=== PATIENT | female | born 1970 | race Caucasian/White ===

== ENCOUNTER → 2016-05-20 | Outpatient (CLI) | payer BC | LOC: M PAIN 11:20 | PROVIDERS: ATTEND Anesthesiology | DX: G89.29 Other chronic pain (principal); M54.12 Radiculopathy, cervical region; M25.512 Pain in left shoulder; E03.9 Hypothyroidism, unspecified; D64.9 Anemia, unspecified; G43.909 Migraine, unspecified, not intractable, without status migrainosus; M32.9 Systemic lupus erythematosus, unspecified; Z79.890 Hormone replacement therapy ==

== ENCOUNTER → 2016-05-20 | Outpatient (CLI) | payer BC ==
--- NOTE | 2016-06-02 00:01 | ECWPNPC ---
PATIENT NAME: SEGUNDO POWER : 1970 GENDER: FEMALE VISIT DATE: 05/20/2016 DISCHARGE DATE: 05/20/16 0746 VISIT LOCKED DATE TIME: PHYSICIAN: WILBUR WITT RESOURCE: WILBUR WITT REASON FOR APPOINTMENT 1. NEW PATIENT CONSULT - LEFT SHOULDER PAIN HISTORY OF PRESENT ILLNESS TODAY'S VISIT: NOTES: STATES HAS BEEN DEALING WITH LEFT SHOULDER PAIN FOR A YEAR. PAIN STARTS AT BACK PF HEAD RADIATES TO SHOULDER AND DOWN LEFT ARM TO LEFT THUMB. STATES IT IS &QUOT;FINE&QUOT; ON AWAKENING, BUT INCREASES DAY PROGRESSES. SENSATION IS THROBBING, TENDER, NUMB, OCCASSIONALLY A BURNING SENSATION AND A PERSISTANT ACHE. HAS HAD PHYSICAL THERAPY FOR NECK (NO IMPROVEMENT), TRIGGER POINT INJECTION TO THE SCAPULA (NO IMPROVEMENT), ACCUPUNCTURE (NO IMPROVEMENT) A TENS UNIT WHICH CANBE HELPFUL AND A SHORT COURSE OF KELSIE WHICH WAS HELPFUL . WAS SEEN AT [facility] AND [facility]. HAS HAD MRI OF CERVICAL SPINE AND EMG/NCS DONE. NO NUMBNESS/TINGLING/WEAKNESS/PRICKLING ON RIGHT SHOULDER OR ARM, OR IN BACK OR LEGS.. CURRENT MEDICATIONS TAKING SYNTHROID 100 MCG TABLET 1 TABLET EVERY MORNING ON AN EMPTY STOMACH ORALLY ONCE A DAY TAKING ZYRTEC D 12HR OTC TABLET 1 TAB(S) ORALLY PRN TAKING MULTI-VITAMIN/IRON 1 TABLET DIRECTED ORALLY DAILY TAKING PLAQUENIL 200 MG TABLET 1 TABLET WITH FOOD OR MILK ORALLY ONCE A DAY TAKING MAGNESIUM 500 MG TABLET 1 TABLET WITH A MEAL ORALLY ONCE A DAY TAKING PROGESTERONE 100 MG CAPSULE 1 CAPSULES AT BEDTIME ORALLY ONCE A DAY TAKING VITAMIN D (ERGOCALCIFEROL) 56194 UNIT CAPSULE 1 CAPSULE ORALLY ONCE A WEEK TAKING VITAMIN B12 3000 MCG/ML LIQUID LIQUID SUBLINGUAL ONCE A DAY PAST MEDICAL HISTORY HYPOTHYROIDISM ANEMIA MIGRAINE H/A LUPUS ALLERGIES N.K.D.A. SURGICAL HISTORY C SECTION X 2 COLONOSCOPY 2009 FAMILY HISTORY FATHER: ALIVE 66 YRS, CVA, DOING WELL MOTHER: ALIVE 64 YRS, OSTEOPOROSIS AT 40 Y.O., FX OF BACK. PATERNAL GRAND MOTHER: 63 YRS, COLON CANCER MATERNAL AUNT: 50'S YRS, BREAST CANCER 1 BROTHER(S) , 1 SISTER(S) - HEALTHY. 3DAUGHTER(S) - HEALTHY. NO FAMILY HX OF OVARIAN CANCER. REVIEW OF SYSTEMS FOLLOW-UP ROS: CARDIOLOGY: NEGATIVE FOR, CHEST PAIN, EDEMA, HEART MURMURS, PALPITATIONS . HEME/LYMPH TRANSFUSION AFTER . TAKES IRON AND B VITAMINS . INTEGUMENT NO UNUSUAL RASH OR CHANGING LESIONS . ENDOCRINOLOGY: THYROID UNDER CONTROL, DENIES DIABETES . GASTROENTEROLOGY: NO NAUSEA, VOMITING, DIARRHEA, CONSTIPATION, MELENA, HEMATOCHEZIA. DENIES LOSS OF BOWEL CONTROL . GI/ DENIES LOSS OF BLADDER CONTROL/DENIES HEMATURIA . NEUROLOGY: POSITIVE FOR MIGRAINE WITH MENSES. NO HX OF SEIZURES . PULMONOLOGY: NEGATIVE FOR, ASTHMA, BREATHING PROBLEMS, COUGH. NO HISTORY OF BRONCHITIS, PNEUMONIA . PSYCHOLOGY: PATIENT DENIES SUICIDAL OR HOMICIDAL IDEATION. BECKS DEPRESSION SELF INVENTORY= . VITAL SIGNS WT 130 LBS, HT 63 IN, BMI 23.03 INDEX, BP 115/67 MM HG, HR 83 /MIN, RR 16 /MIN, TEMP 98.7 F, OXYGEN SAT % 100%, NA INITIALS SC 13:02. EXAMINATION GENERAL EXAMINATION: GENERAL APPEARANCE:WELL DEVELOPED, THIN, WELL GROOMED. PSYCHALERT , ORIENTED X 3 , APPROPRIATE MOOD AND AFFECT , GOOD EYE CONTACT. HEENT:NORMOCEPHALIC, NO LYMPHADENOPATHY, NO THYROMEGLY. LUNGS:CLEAR TO AUSCULTATION BILATERALLY, NO WHEEZES, RALES OR RHONCHI. HEART:HEART RATE REGULAR, NORMAL S1S2, NO MURMURS, CLICK OR RUBS. MUSCULOSKELETAL:5-/5 LUE PROX/DIST. DECREASED MUSCLE MASS AT RIGHT BICEPS. POINT TENDERRNESS OVER LEFT GREATER THAN RIGHT CERVICAL PARASPINOUS MUSCLES. AUDIBLE CREPITUS NOTED WITH NECK ROTATION. CAN FLEX AND EXTEND NECK WITH SOME RESTRICTION. , TRIGGER POINTS:, ELICITED WITH PALPATION OVER CERVICAL SPINOUS PROCESSES AND ACROSS THE TRAPEZIUS MUSCLESLEFT SIDE ONLY. RESTRICTION OF ROM IS NOTED. . NEUROLOGIC EXAM:DTRS 1+ RUE. 3+ LUE DECREASED SENSATION LEFT LATERAL FOREARM AND THUMB. POSITIVE L'ERHMITTES SIGN WITH HEAD COMPRESSION.. ASSESSMENTS CERVICAL RADICULOPATHY AT C5 - M54.12 (PRIMARY) TREATMENT CERVICAL RADICULOPATHY AT C5 START GABAPENTIN CAPSULE, 100 MG, DIRECTED, ORALLY, THREE TIMES DAILY, 30 DAY(S), 90, REFILLS 1 CERVICAL EPIDURAL WILBUR RIVERA 05/20/2016 12:38:51 PM > LEFT C5-6 REGION NOTES: START GABAPENTIN 100 MG AT BEDTIME FOR 4 DAYS, THEN INCREASE TO TWICE A DAY, AND THEN AFTER 4 MORE DAYS, THEN THREE TIMES PER DAY. DO PHYSICAL THERAPY EXERCISES AFTER EPIDURAL INJECTION. ,CERVICAL EPIDURAL INJECTION MATERIAL WAS PRINTED,CERVICAL EPIDURAL INJECTION MATERIAL WAS PRINTED. CLINICAL NOTES: OPTION FOR EPIDURAL INJECTIONS WERE DISCUSSED WITH THE PATIENT. FDA CONCERNS AND WARNING WERE REVIEWED INCLUDING THE RISK OF BLEEDING, RISK OF INFECTION, RISK OF INCREASED PAIN OR NEURALGIA, AND RISK OF PARALYSIS. PATIENT'S QUESTIONS WERE ANSWERED AND HE/SHE WISHES TO MOVE FORWARD WITH EPIDURAL INJECTION. FOLLOW UP AFTER INJECTION (REASON: JOHNSON - NEED MRI OF C SPINE DONE AT [facility]) ELECTRONICALLY SIGNED BY CRISTINA SOL ON 06/01/2016 AT 02:02 PM EST DISCLAIMER : THIS IS A VISIT SUMMARY EXTRACTED FROM THE [employer] CHART. IT IS NOT A COPY OF THE [employer] PROGRESS NOTE. MARIA GUADALUPE
== END ==
LOC: M PAIN 11:20
PROVIDERS: ATTEND Nurse Practitioner Family
DX: G89.29 Other chronic pain (principal); M54.12 Radiculopathy, cervical region; M25.512 Pain in left shoulder; E03.9 Hypothyroidism, unspecified; D64.9 Anemia, unspecified; G43.909 Migraine, unspecified, not intractable, without status migrainosus; M32.9 Systemic lupus erythematosus, unspecified; Z79.899 Other long term (current) drug therapy

== ENCOUNTER → 2016-06-09 | Outpatient (CLI) | payer BC ==
[~2016-06-09] MED LIST: ISOVUE-M 300 61% 15ML VIAL (Q9967) As Ordered ONE; LIDOCAINE 1% SDV INJ 30 ML VIAL As Ordered ONE; diazePAM 5 MG TAB As Ordered ONE; methylPREDNISolone SUSP 40 MG/ML (DEPO-medrol) VIAL (J1030) As Ordered ONE
--- NOTE | 2016-06-09 18:24 | REP ---
Partial cervical spine series: Two views: History: Injection procedure for pain. 6 seconds of fluoroscopy time is reported. Findings: A sequence of two fluoroscopically obtained intraprocedural spot radiographs of the cervicothoracic junction document needle position and contrast injection associated with cervical epidural injection procedure. Signed by Bryson Vang MD 06/09/2016 06:42 P
--- NOTE | 2016-06-10 23:41 | ECWPNPC ---
PATIENT NAME: SEGUNDO POWER : 1970 GENDER: FEMALE VISIT DATE: 06/09/2016 DISCHARGE DATE: 06/09/16 1446 VISIT LOCKED DATE TIME: PHYSICIAN: AVIS OSMAN RESOURCE: AVIS OSMAN REASON FOR APPOINTMENT 1. CERVICAL EPIDURAL HISTORY OF PRESENT ILLNESS HISTORY OF PRESENT ILLNESS: PAIN THE PATIENT DESCRIBES THE PAIN... FALL RISK SCREENING: SCREENING :NO FALLS IN THE PAST YEAR CURRENT MEDICATIONS TAKING SYNTHROID 100 MCG TABLET 1 TABLET EVERY MORNING ON AN EMPTY STOMACH ORALLY ONCE A DAY, NOTES: 06/08/16@0700 TAKING ZYRTEC D 12HR OTC TABLET 1 TAB(S) ORALLY PRN, NOTES: 6 WEEKS TAKING MULTI-VITAMIN/IRON 1 TABLET DIRECTED ORALLY DAILY, NOTES: 2 WEEKS TAKING PLAQUENIL 200 MG TABLET 1 TABLET WITH FOOD OR MILK ORALLY ONCE A DAY, NOTES: 06/08/16@0900 TAKING MAGNESIUM 500 MG TABLET 1 TABLET WITH A MEAL ORALLY ONCE A DAY, NOTES: 06/07/16@2100 TAKING PROGESTERONE 100 MG CAPSULE 1 CAPSULES AT BEDTIME ORALLY ONCE A DAY, NOTES: 06/07/16@2100 TAKING VITAMIN D (ERGOCALCIFEROL) 02699 UNIT CAPSULE 1 CAPSULE ORALLY ONCE A WEEK, NOTES: @1200 TAKING VITAMIN B12 3000 MCG/ML LIQUID LIQUID SUBLINGUAL ONCE A DAY, NOTES: 06/05/16@1200 TAKING GABAPENTIN 100 MG CAPSULE DIRECTED ORALLY THREE TIMES DAILY, NOTES: 06/08/16@0900 MEDICATION LIST REVIEWED AND RECONCILED WITH THE PATIENT PAST MEDICAL HISTORY HYPOTHYROIDISM ANEMIA MIGRAINE H/A LUPUS ALLERGIES N.K.D.A. SOCIAL HISTORY GENERAL: TOBACCO USE ARE YOU A:NONSMOKER LEARNING BARRIERS / SPECIAL NEEDS ORIENTED TO PLAN OF CARE: PATIENT, PAIN MANAGEMENT PATIENT, ORIENTED TO PLAN OF CARE: PATIENT, PAIN MANAGEMENT PATIENT. NEW PATIENT PAIN DIARY TODAY'S VISITNOTES FROM 0-10, WHAT LEVEL IS YOUR PAIN TODAY?0 PAIN CLINIC PFS, CLERGY, PUBLIC HEALTH REFERRALS PFS REFERRAL NEEDED?NO CLERGY REFERRAL NEEDED?NO PUBLIC HEALTH REFERRAL NEEDED?NO WAS THE PROVIDER NOTIFIED OF ANY PERTINENT INFO?NO PFS REFERRAL NEEDED?NO CLERGY REFERRAL NEEDED?NO PUBLIC HEALTH REFERRAL NEEDED?NO WAS THE PROVIDER NOTIFIED OF ANY PERTINENT INFO?NO REVIEW OF SYSTEMS CONSTITUTIONAL: ANY CHANGE IN YOUR MEDICAL CONDITION? NO . CHILLS NO . FEVER NO . INFECTION: DO YOU HAVE NEW INFECTIONS? NO . DO YOU HAVE HISTORY OF MRSA? NO . MUSCULOSKELETAL: ANY NEW PATTERNS OF PAIN OR NUMBNESS? NO . GASTROENTEROLOGY: ANY NEW CHANGE IN BOWEL CONTROL? NO . GENITOURINARY: ANY NEW CHANGE IN BLADDER CONTROL? NO . IS THERE A CHANCE YOU COULD BE ? NO . HEMATOLOGY/LYMPH: DO YOU TAKE ANY BLOOD THINNERS? (FOR EXAMPLE- COUMADIN, PLAVIX, AGGRENOX, PLATEL, PRADAXA, OR XARELTO) NO . WHEN WAS YOUR LAST DOSE? DATE: TIME: . NEUROLOGY: HAVE YOU FALLEN IN THE PAST 6 MONTHS? NO . ANY NEW EXTREMITY NUMBNESS OR WEAKNESS? NO . CARDIOLOGY: DO YOU HAVE A PACEMAKER OR DEFIBRILLATOR? NO . RESPIRATORY: HAVE YOU BEEN SICK IN THE PAST WEEK? NO . FEVER NO . FLU LIKE SYMPTOMS? NO . COUGH NO . INTEGUMENTARY: DO YOU HAVE ANY RASHES OR OPEN SORES? NO . ALLERGIC/IMMUNO: ARE YOU ALLERGIC TO SHELLFISH OR IV DYE? NO . ANY NEW ALLERGIES? NO . PSYCHIATRIC: DO YOU HAVE THOUGHTS OF HURTING YOURSELF OR SOMEONE ELSE? NO . ARE YOU ABUSED, NEGLECTED, OR IN AN UNSAFE ENVIRONMENT? NO . ENDOCRINOLOGY: ARE YOU DIABETIC? NO . OTHER: DO YOU NEED ANY PRESCRIPTIONS? NO . IF YES, PLEASE LIST: ____ . ANY NEW PROBLEMS WITH YOUR MEDICATIONS? NO . WHEN DID YOU LAST EAT? ____06/08/16 . WHEN DID YOU LAST DRINK? ____06/09/16@0300 . WHAT DID YOU LAST DRINK? ____WATER . NAME OF PERSON DRIVING YOU HOME? ____KAREN POWER OR HE . DO YOU HAVE ANY OTHER QUESTIONS OR CONCERNS NO . REVIEWED BY: PROVIDER: . VITAL SIGNS WT 130 LBS, HT 63 IN, BMI 23.03 INDEX, BP 114/54 MM HG, HR 80 /MIN, RR 16 /MIN, TEMP 98.0 F, OXYGEN SAT % 99, NA INITIALS TL 1106, REVIEWED BY: VD. ASSESSMENTS CERVICAL DISC DISORDER AT C4-C5 LEVEL WITH RADICULOPATHY - M50.121 (PRIMARY) CERVICAL DISC DISORDER AT C5-C6 LEVEL WITH RADICULOPATHY - M50.122 CERVICAL DISC DISORDER AT C6-C7 LEVEL WITH RADICULOPATHY - M50.123 PROCEDURES PN CERVICAL EPIDURAL PRE PROCEDURE DIAGNOSIS CERVICAL RADICULOPATHY, CERVICAL DISC DISORDER WITH RADICULOPATHY POST PROCEDURE DIAGNOSIS CERVICAL RADICULOPATHY , CERVICAL DISC DISORDER WITH RADICULOPATHY PROCEDURE CERVICAL EPIDURAL STEROID INJECTION UNDER FLUOROSCOPIC GUIDANCE SURGEON DR. AVIS OSMAN DECK AND HULL ASSEMBLER NONE ANESTHESIA LOCAL PRE PROCEDURE NOTE THE PATIENT HAS A HISTORY OF CHRONIC CERVICAL PAIN. I EVALUATE THE PATIENT AND REVIEWED THE CHART. I WENT OVER THE RISKS, ALTERNATIVES, AND BENEFITS ASSOCIATED WITH THIS PROCEDURE. THE PATIENT WOULD LIKE TO PROCEED AND GIVE CONSENT TO PERFORMED THE PROCEDURE. THE PATIENT DENIES UNEXPLAINABLE WEIGHT LOSS, FEVER, CHILLS, OR NEW CHANGES IN URINARY OR BOWEL CONTROL DESCRIPTION OF PROCEDURE THE PATIENT WAS BROUGHT TO THE PROCEDURE ROOM AND PLACED IN THE PRONE POSITION. THE CERVICOTHORACIC AREA WAS CLEANED WITH BETADINE SOLUTION AND DRAPED ASEPTICALLY. THE PROCEDURE WAS DONE UNDER STERILE CONDITIONS. I CHECKED LATERALITY AND THE LEVEL WHERE THE PROCEDURE WAS GOING TO BE PERFORMED WITH THE PATIENT AND THE SUPPORTING STAFF AT THE MOMENT OF THE TIME OUT IN THE PROCEDURE ROOM. UNDER FLUOROSCOPIC GUIDANCE, THE TARGET WAS SELECTED AT THE INTERLAMINAR LEVEL OF C7-T1. LIDOCAINE WAS USED TO NUMB THE SKIN AND THE SUBCUTANEOUS TISSUE BELOW IT. EPIDURAL TUOHY NEEDLE 17-GAUGE WAS ADVANCED UNDER FLUOROSCOPIC GUIDANCE AND FOLLOWING PATIENT FEEDBACK UNTIL THE EPIDURAL SPACE WAS REACHED 6 CM DEEP INTO THE SKIN BY THE LOSS OF RESISTANCE TECHNIQUE. ISOVUE M DYE 30%, 0.25 ML, WAS INJECTED SHOWING ADEQUATE SPREAD OF THE DYE. THEN, A SOLUTION OF 3 ML OF NORMAL SALINE WITH DEPO-MEDROL 60 MG WAS INJECTED SLOWLY FOLLOWING PATIENT FEEDBACK. THERE WAS NO EVIDENCE OF BLOOD, PARESTHESIA OR CEREBROSPINAL FLUID DURING THE PROCEDURE. THE PATIENT WAS SENT TO THE RECOVERY ROOM. THE PATIENT WAS MOVING THE EXTREMITIES AND DOING WELL. THERE WAS NO COMPLICATION DURING THE PROCEDURE. FLUOROSCOPY TIME WAS 6 SECONDS POST PROCEDURE NOTE THE PATIENT WILL BE SEEN IN A FOLLOW UP IN THE NEXT FEW WEEKS. INSTRUCTIONS WERE GIVEN, QUESTIONS WERE ANSWERED, AND THE PATIENT EXPRESSED UNDERSTANDING AND AGREES WITH THE PLAN. I, AUGUSTINE BIRD, DOCUMENTED THE ABOVE INFORMATION ACTING A SCRIBE FOR DR. OSMAN. I, DR. OSMAN, HAVE REVIEWED THE ABOVE DOCUMENT, SCRIBED BY AUGUSTINE BIRD, AND I VERIFY THAT IT IS ACCURATE DIAGNOSTIC IMAGING [facility] FLUORO GUIDE SPINE INJECTION (PAIN)[id number] PROCEDURE CODES 20242 CERVICAL/THORACIC W/ IMAGING 6045F RADXPS IN END [id number] PXD FOLLOW UP 3 WEEKS ELECTRONICALLY SIGNED BY AVIS OSMAN MD ON 06/10/2016 AT 08:47 PM EST DISCLAIMER : THIS IS A VISIT SUMMARY EXTRACTED FROM THE [employer] CHART. IT IS NOT A COPY OF THE [employer] PROGRESS NOTE. MTDD
== END ==
LOC: M PAIN 10:50
PROVIDERS: ATTEND Anesthesiology
DX: G89.29 Other chronic pain (principal); M50.121 Cervical disc disorder at C4-C5 level with radiculopathy; M50.122 Cervical disc disorder at C5-C6 level with radiculopathy; M50.123 Cervical disc disorder at C6-C7 level with radiculopathy; Z79.899 Other long term (current) drug therapy
CPT/HCPCS: 62321; J1030; Q9967

== ENCOUNTER → 2016-06-25 | Outpatient (CLI) | payer BC ==
--- NOTE | 2016-07-08 01:00 | ECWPNPC ---
PATIENT NAME: SEGUNDO POWER : 1970 GENDER: FEMALE VISIT DATE: 06/25/2016 DISCHARGE DATE: 06/25/16 1211 VISIT LOCKED DATE TIME: PHYSICIAN: WILBUR WITT RESOURCE: WILBUR WITT REASON FOR APPOINTMENT 1. POST CERVICAL EPIDURAL HISTORY OF PRESENT ILLNESS HISTORY OF PRESENT ILLNESS: PAIN THE PATIENT DESCRIBES THE PAIN... FALL RISK SCREENING: SCREENING :NO FALLS IN THE PAST YEAR TODAY'S VISIT: NOTES: S/P CESB ON 06/09/16. HAD IMMEDIATE DECREASE IN PAIN TO 0/10 FOR 48 HOURS AND THEN PAIN RETURNED TO A 7/10 FOR A DAY, THEN DECREASED TO 4-5/10. RATES PAIN TODAY 4/10. IS STILL HAVING PAIN AT BASE OF NECK WITH RADIATION TO LEFT UPPER ARM. IS NO LONGER HAVING NUMBESS IN LEFT THUMB. . CURRENT MEDICATIONS TAKING SYNTHROID 100 MCG TABLET 1 TABLET EVERY MORNING ON AN EMPTY STOMACH ORALLY ONCE A DAY, NOTES: 06/08/16@0700 TAKING PLAQUENIL 200 MG TABLET 1 TABLET WITH FOOD OR MILK ORALLY 100MG TWICE DAILY, NOTES: 06/08/16@0900 TAKING MAGNESIUM 500 MG TABLET 1 TABLET WITH A MEAL ORALLY ONCE A DAY, NOTES: 06/07/16@2100 TAKING PROGESTERONE 100 MG CAPSULE 1 CAPSULES AT BEDTIME ORALLY ONCE A DAY, NOTES: 06/07/16@2100 TAKING VITAMIN B12 3000 MCG/ML LIQUID LIQUID SUBLINGUAL ONCE A DAY, NOTES: 06/05/16@1200 TAKING VITAMIN D (ERGOCALCIFEROL) 63220 UNIT CAPSULE 1 CAPSULE ORALLY ONCE A WEEK, NOTES: @1200 TAKING GABAPENTIN 100 MG CAPSULE DIRECTED ORALLY THREE TIMES DAILY, NOTES: 06/08/16@0900 NOT-TAKING ZYRTEC D 12HR OTC TABLET 1 TAB(S) ORALLY PRN, NOTES: 6 WEEKS NOT-TAKING MULTI-VITAMIN/IRON 1 TABLET DIRECTED ORALLY DAILY, NOTES: 2 WEEKS MEDICATION LIST REVIEWED AND RECONCILED WITH THE PATIENT PAST MEDICAL HISTORY HYPOTHYROIDISM ANEMIA MIGRAINE H/A LUPUS ALLERGIES N.K.D.A. SOCIAL HISTORY GENERAL: TOBACCO USE ARE YOU A:NONSMOKER LEARNING BARRIERS / SPECIAL NEEDS ORIENTED TO PLAN OF CARE: PATIENT, PAIN MANAGEMENT PATIENT, ORIENTED TO PLAN OF CARE: PATIENT, PAIN MANAGEMENT PATIENT. NEW PATIENT PAIN DIARY TODAY'S VISITNOTES FROM 0-10, WHAT LEVEL IS YOUR PAIN TODAY?0 PAIN CLINIC PFS, CLERGY, PUBLIC HEALTH REFERRALS PFS REFERRAL NEEDED?NO CLERGY REFERRAL NEEDED?NO PUBLIC HEALTH REFERRAL NEEDED?NO WAS THE PROVIDER NOTIFIED OF ANY PERTINENT INFO?NO PFS REFERRAL NEEDED?NO CLERGY REFERRAL NEEDED?NO PUBLIC HEALTH REFERRAL NEEDED?NO WAS THE PROVIDER NOTIFIED OF ANY PERTINENT INFO?NO REVIEW OF SYSTEMS CONSTITUTIONAL: ANY CHANGE IN YOUR MEDICAL CONDITION? NO . CHILLS NO . FEVER NO . INFECTION: DO YOU HAVE NEW INFECTIONS? NO . DO YOU HAVE HISTORY OF MRSA? NO . MUSCULOSKELETAL: ANY NEW PATTERNS OF PAIN OR NUMBNESS? NO . GASTROENTEROLOGY: ANY NEW CHANGE IN BOWEL CONTROL? NO . GENITOURINARY: ANY NEW CHANGE IN BLADDER CONTROL? NO . IS THERE A CHANCE YOU COULD BE ? NO . HEMATOLOGY/LYMPH: DO YOU TAKE ANY BLOOD THINNERS? (FOR EXAMPLE- COUMADIN, PLAVIX, AGGRENOX, PLATEL, PRADAXA, OR XARELTO) NO . WHEN WAS YOUR LAST DOSE? DATE: TIME: . NEUROLOGY: HAVE YOU FALLEN IN THE PAST 6 MONTHS? NO . ANY NEW EXTREMITY NUMBNESS OR WEAKNESS? NO . CARDIOLOGY: DO YOU HAVE A PACEMAKER OR DEFIBRILLATOR? NO . RESPIRATORY: HAVE YOU BEEN SICK IN THE PAST WEEK? NO . FEVER NO . FLU LIKE SYMPTOMS? NO . COUGH NO . INTEGUMENTARY: DO YOU HAVE ANY RASHES OR OPEN SORES? NO . ALLERGIC/IMMUNO: ARE YOU ALLERGIC TO SHELLFISH OR IV DYE? NO . ANY NEW ALLERGIES? NO . PSYCHIATRIC: DO YOU HAVE THOUGHTS OF HURTING YOURSELF OR SOMEONE ELSE? NO . ARE YOU ABUSED, NEGLECTED, OR IN AN UNSAFE ENVIRONMENT? NO . ENDOCRINOLOGY: ARE YOU DIABETIC? NO . OTHER: DO YOU NEED ANY PRESCRIPTIONS? NO . IF YES, PLEASE LIST: ____ . ANY NEW PROBLEMS WITH YOUR MEDICATIONS? NO . WHEN DID YOU LAST EAT? ____ . WHEN DID YOU LAST DRINK? ____ . WHAT DID YOU LAST DRINK? ____ . NAME OF PERSON DRIVING YOU HOME? ____ . DO YOU HAVE ANY OTHER QUESTIONS OR CONCERNS YES, MORE PAIN SINCE MRI ON TUESDAY. SHOULD SHE CONTINUE GABAPENTIN? . REVIEWED BY: PROVIDER: WILBUR SHEN . VITAL SIGNS WT 134.4 LBS, HT 63 IN, BMI 23.81 INDEX, BP 120/80 MM HG, HR 77 /MIN, RR 16 /MIN, TEMP 97.9 F, OXYGEN SAT % 99%, NA INITIALS SC 11:30, REVIEWED BY: DENISHA. EXAMINATION GENERAL EXAMINATION: PSYCHALERT , ORIENTED X 3 , APPROPRIATE MOOD AND AFFECT . LUNGS:CLEAR TO AUSCULTATION BILATERALLY. HEART:HEART RATE REGULAR. MUSCULOSKELETAL:POINT TENDERNESS OVER CERVICAL SPINOUS PROCESSES AT THE C7-T1 LEVEL TRIGGER POINTS AND TIGHT FIBROUS BANDS IDENTIFIED OVER THE LEFT SCAPULA AND LEFT TRAPEZIUS. HAS DIFFICULTY NOTED WITH SHOULDER SHRUG. SLOW STRENGTH 5 -/5 DISTALLY AND PROXIMALLY IN THE LEFT UPPER EXTREMITY. NO SPECIFIC SENSORY DEFICITS IDENTIFIED TODAY.. ASSESSMENTS CERVICAL DISC DISORDER AT C4-C5 LEVEL WITH RADICULOPATHY - M50.121 (PRIMARY) CERVICAL DISC DISORDER AT C5-C6 LEVEL WITH RADICULOPATHY - M50.122 CERVICAL DISC DISORDER AT C6-C7 LEVEL WITH RADICULOPATHY - M50.123 TREATMENT CERVICAL DISC DISORDER AT C4-C5 LEVEL WITH RADICULOPATHY NOTES: CONTINUE GABAPENTIN AT BEDTIME.CONTINUE EXERCISES AND STRETCHES. PROCEDURE CODES FA211 ESTABILISHED PATIENT [facility] CHARGE DISPOSITION & COMMUNICATION FOLLOW UP 2-3 MONTHS ELECTRONICALLY SIGNED BY CRISTINA SOL ON 07/07/2016 AT 03:35 PM EST DISCLAIMER : THIS IS A VISIT SUMMARY EXTRACTED FROM THE [employer] CHART. IT IS NOT A COPY OF THE [employer] PROGRESS NOTE. MARIA GUADALUPE
== END ==
LOC: M PAIN 11:00
PROVIDERS: ATTEND Nurse Practitioner Family
DX: Z09 Encounter for follow-up examination after completed treatment for conditions other than malignant neoplasm (principal); G89.29 Other chronic pain; M50.121 Cervical disc disorder at C4-C5 level with radiculopathy; M50.122 Cervical disc disorder at C5-C6 level with radiculopathy; M50.123 Cervical disc disorder at C6-C7 level with radiculopathy; E03.9 Hypothyroidism, unspecified; D64.9 Anemia, unspecified; G40.909 Epilepsy, unspecified, not intractable, without status epilepticus; M32.9 Systemic lupus erythematosus, unspecified; Z79.890 Hormone replacement therapy; Z79.899 Other long term (current) drug therapy

== ENCOUNTER → 2016-09-06 | Outpatient (CLI) | payer BC ==
--- NOTE | 2016-09-09 02:28 | ECWPNPC ---
PATIENT NAME: SEGUNDO POWER : 1970 GENDER: FEMALE VISIT DATE: 09/06/2016 DISCHARGE DATE: 09/06/16935 VISIT LOCKED DATE TIME: PHYSICIAN: WILBUR WITT RESOURCE: WILBUR WITT REASON FOR APPOINTMENT 1. NECK HISTORY OF PRESENT ILLNESS HISTORY OF PRESENT ILLNESS: PAIN THE PATIENT DESCRIBES THE PAIN... FALL RISK SCREENING: SCREENING :NO FALLS IN THE PAST YEAR TODAY'S VISIT: NOTES: RATES PAIN TODAY 5/10. DESCRIBES PAIN INTERMITTANT, ACHING AND TENDER. IS NOTING IS STARTING TO COME BACK OVER LAST FEW WEEKS. PAIN IS CENTERED OVER NECK WITH PAIN IS RADIATING WITH NUMBNESS AND TINGLING INTO LEFT ARM. NO PAIN AWAKENING IN NIGHT - ONLY WITH ARM USE. WEAKER IN LEFT HAND/ARM. . CURRENT MEDICATIONS TAKING SYNTHROID 100 MCG TABLET 1 TABLET EVERY MORNING ON AN EMPTY STOMACH ORALLY ONCE A DAY, NOTES: 06/08/16@0700 TAKING PLAQUENIL 200 MG TABLET 1 TABLET WITH FOOD OR MILK ORALLY 100MG TWICE DAILY, NOTES: 06/08/16@0900 TAKING MAGNESIUM 500 MG TABLET 1 TABLET WITH A MEAL ORALLY ONCE A DAY, NOTES: 06/07/16@2100 TAKING PROGESTERONE 100 MG CAPSULE 1 CAPSULES AT BEDTIME ORALLY ONCE A DAY, NOTES: 06/07/16@2100 TAKING VITAMIN D (ERGOCALCIFEROL) 05195 UNIT CAPSULE 1 CAPSULE ORALLY ONCE A WEEK, NOTES: @1200 TAKING GABAPENTIN 100 MG CAPSULE DIRECTED ORALLY THREE TIMES DAILY, NOTES: 06/08/16@0900 NOT-TAKING ZYRTEC D 12HR OTC TABLET 1 TAB(S) ORALLY PRN, NOTES: 6 WEEKS NOT-TAKING MULTI-VITAMIN/IRON 1 TABLET DIRECTED ORALLY DAILY, NOTES: 2 WEEKS DISCONTINUED VITAMIN B12 3000 MCG/ML LIQUID LIQUID SUBLINGUAL ONCE A DAY, NOTES: 06/05/16@1200 MEDICATION LIST REVIEWED AND RECONCILED WITH THE PATIENT PAST MEDICAL HISTORY HYPOTHYROIDISM ANEMIA MIGRAINE H/A LUPUS ALLERGIES N.K.D.A. SOCIAL HISTORY GENERAL: PAIN CLINIC PFS, CLERGY, PUBLIC HEALTH REFERRALS CLERGY REFERRAL NEEDED?NO WAS THE PROVIDER NOTIFIED OF ANY PERTINENT INFO?NO PFS REFERRAL NEEDED?NO PUBLIC HEALTH REFERRAL NEEDED?NO PATIENT: ____. REVIEW OF SYSTEMS CONSTITUTIONAL: ANY CHANGE IN YOUR MEDICAL CONDITION? NO . CHILLS NO . FEVER NO . INFECTION: DO YOU HAVE NEW INFECTIONS? NO . DO YOU HAVE HISTORY OF MRSA? NO . MUSCULOSKELETAL: ANY NEW PATTERNS OF PAIN OR NUMBNESS? YES PT HAD LYLE 06/09, WITH MODERATE IMPROVEMENT OF PAIN LEVEL, BUT PAIN HAS BEEN STEADILY INCREASING FOR THE PAST THREE WEEKS, AND IS NOW ALMOST BACK TO PRE PROCEDURE LEVEL. . GASTROENTEROLOGY: ANY NEW CHANGE IN BOWEL CONTROL? NO . GENITOURINARY: ANY NEW CHANGE IN BLADDER CONTROL? NO . IS THERE A CHANCE YOU COULD BE ? NO . HEMATOLOGY/LYMPH: DO YOU TAKE ANY BLOOD THINNERS? (FOR EXAMPLE- COUMADIN, PLAVIX, AGGRENOX, PLATEL, PRADAXA, OR XARELTO) NO . WHEN WAS YOUR LAST DOSE? DATE: TIME: . NEUROLOGY: HAVE YOU FALLEN IN THE PAST 6 MONTHS? NO . ANY NEW EXTREMITY NUMBNESS OR WEAKNESS? NO . CARDIOLOGY: DO YOU HAVE A PACEMAKER OR DEFIBRILLATOR? NO . RESPIRATORY: HAVE YOU BEEN SICK IN THE PAST WEEK? NO . FEVER NO . FLU LIKE SYMPTOMS? NO . COUGH NO . INTEGUMENTARY: DO YOU HAVE ANY RASHES OR OPEN SORES? NO . ALLERGIC/IMMUNO: ARE YOU ALLERGIC TO SHELLFISH OR IV DYE? NO . ANY NEW ALLERGIES? NO . PSYCHIATRIC: DO YOU HAVE THOUGHTS OF HURTING YOURSELF OR SOMEONE ELSE? NO . ARE YOU ABUSED, NEGLECTED, OR IN AN UNSAFE ENVIRONMENT? NO . ENDOCRINOLOGY: ARE YOU DIABETIC? NO . OTHER: DO YOU NEED ANY PRESCRIPTIONS? YES . IF YES, PLEASE LIST: ____GABAPENTIN . ANY NEW PROBLEMS WITH YOUR MEDICATIONS? NO . WHEN DID YOU LAST EAT? ____ . WHEN DID YOU LAST DRINK? ____ . WHAT DID YOU LAST DRINK? ____ . NAME OF PERSON DRIVING YOU HOME? ____ . DO YOU HAVE ANY OTHER QUESTIONS OR CONCERNS YES PT IS WONDERING ABOUT WHETHER SHE SHOULD BE TAKING GABAPENTIN . REVIEWED BY: PROVIDER: WILBUR SHEN . VITAL SIGNS WT 133.2 LBS, HT 63 IN, BMI 23.59 INDEX, BP 101/55 MM HG, HR 78 /MIN, RR 16 /MIN, TEMP 97.9 F, OXYGEN SAT % 99%, SAFE IN ENV? (Y/N) YES, NA INITIALS SC 08:47, REVIEWED BY: NEVAEH. EXAMINATION GENERAL EXAMINATION: PSYCHALERT , ORIENTED X 3 , APPROPRIATE MOOD AND AFFECT . LUNGS:CLEAR TO AUSCULTATION BILATERALLY. HEART:HEART RATE REGULAR. MUSCULOSKELETAL:POINT TENDERNESS OVER CERVICAL SPINOUS PROCESSES AT THE C7-T1 PROMINENCE. L TRIGGER POINTS AND TIGHT FIBROUS BANDS IDENTIFIED OVER THE LEFT SCAPULA AND LEFT TRAPEZIUS. HAS DIFFICULTY NOTED WITH SHOULDER SHRUG. SLOW STRENGTH 5 -/5 DISTALLY AND PROXIMALLY IN THE LEFT UPPER EXTREMITY. NO SPECIFIC SENSORY DEFICITS IDENTIFIED TODAY.. ASSESSMENTS CERVICAL DISC DISORDER AT C4-C5 LEVEL WITH RADICULOPATHY - M50.121 (PRIMARY) CERVICAL DISC DISORDER AT C5-C6 LEVEL WITH RADICULOPATHY - M50.122 CERVICAL DISC DISORDER AT C6-C7 LEVEL WITH RADICULOPATHY - M50.123 TREATMENT CERVICAL DISC DISORDER AT C4-C5 LEVEL WITH RADICULOPATHY CERVICAL EPIDURAL RIGHT NOTES: CONTINUE MASSAGE, EXERCISES AND STRETCHES. CONTINUE GABAPENTIN UP TO 3 TIMES PER DAY.,CERVICAL EPIDURAL INJECTION MATERIAL WAS PRINTED. PROCEDURE CODES [id number] ESTABILISHED PATIENT [facility] FACILITY CHARGE DISPOSITION & COMMUNICATION FOLLOW UP AFTER INJECTION (REASON: CHECK AUTH FOR [facility]) ELECTRONICALLY SIGNED BY CRISTINA SOL ON 09/06/2016 AT 12:57 PM EDT DISCLAIMER : THIS IS A VISIT SUMMARY EXTRACTED FROM THE [employer] ([email or web address] CHART. IT IS NOT A COPY OF THE [employer] PROGRESS NOTE. MARIA GUADALUPE
== END ==
LOC: M PAIN 08:40
PROVIDERS: ATTEND Nurse Practitioner Family
DX: G89.29 Other chronic pain (principal); M50.121 Cervical disc disorder at C4-C5 level with radiculopathy; M50.122 Cervical disc disorder at C5-C6 level with radiculopathy; M50.123 Cervical disc disorder at C6-C7 level with radiculopathy; E03.9 Hypothyroidism, unspecified; D64.9 Anemia, unspecified; G43.909 Migraine, unspecified, not intractable, without status migrainosus; M32.9 Systemic lupus erythematosus, unspecified; Z79.3 Long term (current) use of hormonal contraceptives; Z79.899 Other long term (current) drug therapy

== ENCOUNTER → 2017-06-30 | Outpatient (CLI) | payer BC ==
[2017-06-30 09:26] LABS: BASO % 0.9 % (0.0-1.0); EOS # 0.1 10^3/uL (0.0-0.50); EOS % 1.2 % (0.0-3.0); HEMOGLOBIN 11.7 g/dl (12.0-16.0); IMMATURE GRANULOCYTE % 0.7 % (0-3.0); LYMPH # 1.3 10^3/uL (1.5-4.5); LYMPH % 29.1 % (24.0-44.0); MEAN CORPUSCULAR HEMOGLOBIN 29.7 pg (27.0-33.0); MEAN CORPUSCULAR HGB CONC 32.5 g/dl (32.0-36.5); MEAN CORPUSCULAR VOLUME 91.4 fl (80.0-96.0); MONO # 0.3 10^3/uL (0.0-0.8); MONO % 6.7 % (0.0-5.0); NEUTROPHILS # 2.6 10^3/uL (1.8-7.7); NEUTROPHILS % 61.4 % (36.0-66.0); PLATELET COUNT, AUTOMATED 217 10^3/uL (150-450); RED BLOOD COUNT 3.94 10^6/uL (4.00-5.40); RED CELL DISTRIBUTION WIDTH 11.4 % (11.5-14.5); WHITE BLOOD COUNT 4.3 10^3/uL (4.0-10.0)
[2017-06-30 09:51] LABS: ERYTHROCYTE SEDIMENTATION RATE 6 mm/hr (0-20)
[2017-06-30 09:57] LABS: ALBUMIN 3.7 GM/DL (3.2-5.2); ALBUMIN/GLOBULIN RATIO 1.42 (1.00-1.93); ALKALINE PHOSPHATASE 35 U/L (45-117); ALT/SGPT 15 U/L (12-78); ANION GAP 6 MEQ/L (8-16); AST/SGOT 8 U/L (7-37); BILIRUBIN,TOTAL 0.4 MG/DL (0.2-1.0); BLOOD UREA NITROGEN 21 MG/DL (7-18); CALCIUM LEVEL 8.6 MG/DL (8.5-10.1); CARBON DIOXIDE LEVEL 29 MEQ/L (21-32); CHLORIDE LEVEL 110 MEQ/L (98-107); CREATININE FOR GFR 0.65 MG/DL (0.55-1.30); FERRITIN 48 NG/ML (8-252); FREE T4 1.12 NG/DL (0.76-1.46); GLOMERULAR FILTRATION RATE > 60.0 (>58); GLUCOSE, FASTING 72 MG/DL (70-100); POTASSIUM SERUM 4.3 MEQ/L (3.5-5.1); SODIUM LEVEL 145 MEQ/L (136-145); TOTAL PROTEIN 6.3 GM/DL (6.4-8.2)
[2017-07-01 14:17] LABS: ANTINUCLEAR ANTIBODIES DIRECT Negative (Negative)
== END ==
LOC: M LAB 08:08
DX: R76.8 Other specified abnormal immunological findings in serum (principal)

== ENCOUNTER 2017-11-03 21:12 | Emergency (ER) | payer BC ==
[2017-11-03] MEDS: NORCO 5/325MG TABLET (BULK FOR ED) PO (23:43)
== END 2017-11-03 23:49 | disposition home or self-care (01) ==
LOC: M ED 21:12
DX: S80.01XA Contusion of right knee, initial encounter (principal); W22.8XXA Striking against or struck by other objects, initial encounter; Y92.099 Unspecified place in other non-institutional residence as the place of occurrence of the external cause; Y93.9 Activity, unspecified; Y99.9 Unspecified external cause status; D64.9 Anemia, unspecified; M32.9 Systemic lupus erythematosus, unspecified; Z79.899 Other long term (current) drug therapy
CPT/HCPCS: 73564

== ENCOUNTER → 2019-03-22 | Outpatient (CLI) | payer BC ==
[~2019-03-22] MED LIST changes: +CELE1CAP9 PO; +DICL1GEL3 TOP; +HYDR200T3 PO; -ISOVUE-M 300 61% 15ML VIAL (Q9967) As Ordered ONE; +LEVO125T4 PO; -LIDOCAINE 1% SDV INJ 30 ML VIAL As Ordered ONE; +MAG400TA PO; -diazePAM 5 MG TAB As Ordered ONE; -methylPREDNISolone SUSP 40 MG/ML (DEPO-medrol) VIAL (J1030) As Ordered ONE
[2019-03-22 11:53] LABS: BASO % 0.5 % (0.0-1.0); EOS % 0.4 % (0.0-3.0); HEMATOCRIT 36.4 % (36.0-47.0); LYMPH # 2.1 10^3/uL (1.5-5.0); MONO # 0.5 10^3/uL (0.0-0.8); MONO % 6.4 % (0.0-5.0); NEUTROPHILS # 5.7 10^3/uL (1.5-8.5); NEUTROPHILS % 67.5 % (36.0-66.0); PLATELET COUNT, AUTOMATED 223 10^3/uL (150-450); WHITE BLOOD COUNT 8.4 10^3/uL (4.0-10.0)
[2019-03-22 12:27] LABS: CHOLESTEROL RISK RATIO 2.454 (<5); FREE T4 1.28 NG/DL (0.76-1.46); LUTEINIZING HORMONE 1.7 mIU/mL; PROGESTERONE 18.38 NG/ML; THYROID STIMULATING HORMONE 0.611 uIU/ML (0.358-3.740); TOTAL 25(OH) VITAMIN D 109.8 NG/ML (30.0-100.0); TOTAL T3 88.4 NG/DL (60.0-181.0)
[2019-03-22 12:51] LABS: ESTRADIOL 195.8 PG/ML; FOLLICLE STIMULATING HORMONE 2.3 mIU/mL
[2019-03-26 10:34] LABS: DEHYDROEPIANDROSTERONE UNCONJ 110 ng/dL (31-701); SEX HORMONE BINDING GLOBULIN 119.9 nmol/L (24.6-122.0); TESTOSTERONE FREE (DIRECT) 1.4 pg/mL (0.0-4.2)
== END ==
LOC: M LAB 10:42
PROVIDERS: ATTEND Obstetrics & Gynecology Gynecology
DX: N94.3 Premenstrual tension syndrome (principal)

== ENCOUNTER → 2019-05-14 | Outpatient (CLI) | payer BC ==
--- NOTE | 2019-05-14 16:44 | REPMRS ---
Patient History The patient states she had a clinical breast exam in 2018. Patient had first child at age 30. Family history of breast cancer in maternal aunt, colorectal cancer in paternal grandmother. Digital Woman Screen Mammo: May 14, 2019 - Exam #: [id number] Bilateral CC and MLO view(s) were taken. Technologist: Tea Guo, Technologist Prior study comparison: April 03, 2010, bilateral screening mammogram, performed at [facility]. April 02, 2009, screening mammogram, performed at [facility]. February 11, 2008, bilateral screening mammogram, performed at [facility]. FINDINGS: The breast tissue is heterogeneously dense. This may lower the sensitivity of mammography. There is a 2.5 cm well circumscribed relatively low density new lesion in the medial aspect of the left breast. This merits further evaluation. There is a moderate amount of heterogeneously dense fibroglandular tissue which is fairly symmetric. There is no other interval development of dominant mass, architectural distortion, or grouped microcalcification typical of malignancy. There has been no other change in the appearance of the mammogram from the prior studies. 3-D tomosynthesis shows no additional findings. Assessment: BI-RADS/ACR category 1 mammogram. Negative Mammogram. Recommendation Ultrasound and special view mammogram of the left breast. This patient's Lifetime Breast Cancer RIsk is estimated at 16.8 %. This mammogram was interpreted with the aid of an FDA-approved computer-aided dectection system. Electronically Signed By: James Vang MD 05/14/19 [id number]
== END ==
LOC: M WHC 14:59
PROVIDERS: ATTEND Obstetrics & Gynecology Gynecology
DX: Z12.31 Encounter for screening mammogram for malignant neoplasm of breast (principal)

== ENCOUNTER → 2019-06-04 | Outpatient (CLI) | payer BC, SELFPAY ==
--- NOTE | 2019-06-04 10:40 | REP ---
Digital diagnostic unilateral left breast mammography with CAD and focused left breast sonography: History: Screening mammography May 14, 2019 was BIRADS category 0 because of an asymmetric neodensity in the left medial breast. Diagnostic imaging was recommended. Comparison is also made with December 23, 2016 and July 23, 2015 prior mammography. Mammographic findings: The breast parenchyma is again seen to be heterogeneously dense. There is a partially obscured homogeneous relatively low density lesion in the superior medial quadrant anterior third retroareolar region of the left breast as seen on screening mammography. No spiculation or microcalcification is seen. No other mammographic finding. Sonographic findings: The left breast is scanned through the superior and medial quadrant from 9 o'clock to 12 o'clock. At the level of the nipple there is a 2.4 x 2.0 x 0.9 cm simple cyst. Background echotexture is somewhat echogenic. No other lesion is seen. Impression: BIRADS 2: BI-RADS/ACR category 2 mammogram. Benign Findings. Simple cyst identified sonographically and accounting for the mammographic opacity. Repeat screening mammography recommended in 1 year. This mammogram was interpreted with the aid of an FDA-approved computer-aided detection system. The patient states she had a clinical breast exam in February 2019. The patient letter being requested is M1. This patient's estimated Tyrer-Cuzick lifetime risk assessment for the breast cancer is 16.8 %. Electronically Signed by Bryson Vang MD 06/04/2019 11:00 A
== END ==
LOC: M RAD 09:14
PROVIDERS: ATTEND Obstetrics & Gynecology Gynecology
DX: Z12.31 Encounter for screening mammogram for malignant neoplasm of breast (principal)

== ENCOUNTER → 2019-07-11 | Outpatient (CLI) | payer BC ==
[2019-07-11 13:50] LABS: FREE T4 1.54 NG/DL (0.76-1.46); THYROID STIMULATING HORMONE 0.198 uIU/ML (0.358-3.740)
== END ==
LOC: M WUC 11:54
PROVIDERS: ATTEND Internal Medicine
DX: E03.9 Hypothyroidism, unspecified (principal)

== ENCOUNTER → 2019-09-14 | Outpatient (CLI) | payer BC ==
[2019-09-14 16:34] LABS: FREE T4 1.3 NG/DL (0.76-1.46); THYROID STIMULATING HORMONE 0.843 uIU/ML (0.358-3.740)
== END ==
LOC: M WUC 13:44
PROVIDERS: ATTEND Internal Medicine
DX: E03.9 Hypothyroidism, unspecified (principal)

== ENCOUNTER → 2020-06-18 | Outpatient (CLI) | payer BC ==
[2020-06-18 17:41] LABS: FREE T4 1.16 NG/DL (0.76-1.46); THYROID STIMULATING HORMONE 0.832 uIU/ML (0.358-3.740)
== END ==
LOC: M PLALAB 14:15
PROVIDERS: ATTEND Internal Medicine
DX: E03.9 Hypothyroidism, unspecified (principal)

== ENCOUNTER → 2020-07-29 | Outpatient (CLI) | payer BC ==
[~2020-07-29] MED LIST changes: -MAG400TA PO; +MAGN400T35 PO
--- NOTE | 2020-07-29 11:36 | REPMRS ---
Patient History The patient states she had a clinical breast exam in July 2020. Family history of breast cancer in maternal aunt, colorectal cancer in paternal grandmother. Digital Woman Screen Mammo: July 29, 2020 - Exam #: [id number] Bilateral CC and MLO view(s) were taken. Technologist: Tea Guo, Technologist Prior study comparison: June 04, 2019, left breast digital mammo diagnostic unilateral, performed at [facility]. May 14, 2019, bilateral digital woman screen mammo performed at [facility]. December 23, 2016, bilateral digital mammo screening bilat, performed at Dr. Tomy Reed [facility]. July 23, 2015, bilateral digital mammo screening bilat, performed at [facility]. FINDINGS: The breast tissue is heterogeneously dense. This may lower the sensitivity of mammography. The Volpara volumetric breast density category is: C. The previously noted left breast cyst has regressed somewhat. There is a moderate amount of heterogeneously dense fibroglandular tissue which is fairly symmetric. There is no interval development of dominant mass, architectural distortion, or grouped microcalcification typical of malignancy. There has been no change in the appearance of the mammogram from the prior studies. 3-D tomosynthesis shows no additional findings. Assessment: BI-RADS/ACR category 2 mammogram. Benign Findings. Recommendation Routine screening mammogram of both breasts in 1 year (for women over age 40). This patient's [facility] Lifetime Breast Cancer RIsk is estimated at 16.5 %. This mammogram was interpreted with the aid of an FDA-approved computer-aided dectection system. Electronically Signed By: James Vang MD 07/29/20 [id number]
== END ==
LOC: M WHC 08:48
PROVIDERS: ATTEND Nurse Practitioner Women's Health
DX: Z12.31 Encounter for screening mammogram for malignant neoplasm of breast (principal); Z80.3 Family history of malignant neoplasm of breast

== ENCOUNTER → 2020-08-21 | Outpatient (CLI) | payer BC ==
[2020-08-21 14:04] LABS: BASO # 0.1 10^3/uL (0.0-0.2); BASO % 0.6 % (0.0-1.0); EOS % 0.4 % (0.0-3.0); HEMOGLOBIN 11.6 g/dl (12.0-15.5); LYMPH # 1.7 10^3/uL (1.5-5.0); MEAN CORPUSCULAR HEMOGLOBIN 29.4 pg (27.0-33.0); MEAN CORPUSCULAR HGB CONC 32.2 g/dl (32.0-36.5); MEAN CORPUSCULAR VOLUME 91.4 fl (80.0-96.0); MONO # 0.6 10^3/uL (0.0-0.8); MONO % 5.3 % (2.0-8.0); NEUTROPHILS # 8.1 10^3/uL (1.5-8.5); NEUTROPHILS % 77.3 % (36.0-66.0); PLATELET COUNT, AUTOMATED 282 10^3/uL (150-450); RED BLOOD COUNT 3.94 10^6/uL (4.00-5.40); WHITE BLOOD COUNT 10.5 10^3/uL (4.0-10.0)
[2020-08-21 14:45] LABS: ALBUMIN 3.8 GM/DL (3.2-5.2); ALT/SGPT 14 U/L (12-78); BILIRUBIN,TOTAL 0.4 MG/DL (0.2-1.0); BLOOD UREA NITROGEN 18 MG/DL (7-18); CALCIUM LEVEL 8.9 MG/DL (8.5-10.1); CARBON DIOXIDE LEVEL 22 MEQ/L (21-32); CHLORIDE LEVEL 110 MEQ/L (98-107); CREATININE FOR GFR 0.86 MG/DL (0.55-1.30); GLOMERULAR FILTRATION RATE > 60.0 (>51); GLUCOSE, FASTING 111 MG/DL (70-100); POTASSIUM SERUM 3.8 MEQ/L (3.5-5.1); SODIUM LEVEL 139 MEQ/L (136-145); TOTAL 25(OH) VITAMIN D 58.5 NG/ML (30.0-100.0); TOTAL PROTEIN 6.7 GM/DL (6.4-8.2); VITAMIN B12 LEVEL 622 PG/ML (247-911)
[2020-08-21 15:00] LABS: ERYTHROCYTE SEDIMENTATION RATE 13 mm/hr (0-30)
== END ==
LOC: M PLALAB 09:34
PROVIDERS: ATTEND Internal Medicine Rheumatology
DX: M32.9 Systemic lupus erythematosus, unspecified (principal); R76.8 Other specified abnormal immunological findings in serum

== ENCOUNTER → 2020-10-02 | Outpatient (REF) | payer BC | LOC: M SFHCWAGY 16:44 | PROVIDERS: ATTEND Nurse Practitioner Women's Health | DX: Z12.4 Encounter for screening for malignant neoplasm of cervix (principal); R87.610 Atypical squamous cells of undetermined significance on cytologic smear of cervix (ASC-US) | CPT/HCPCS: 87624; G0123 ==

== ENCOUNTER → 2020-11-14 | Outpatient (CLI) | payer BC ==
--- NOTE | 2020-11-14 08:44 | REP ---
INDICATION: PAIN IN LEFT HIP. TECHNIQUE: AP pelvis and two views left hip FINDINGS: The hip joint spaces are symmetric and relatively well maintained. There is no acute fracture or destructive osseous lesion. Two views left hip show no fracture, dislocation, or subluxation. There is no buttressing. IMPRESSION: Within normal limits <Electronically signed by Giorgi Webb > 11/14/20 [id number]
--- NOTE | 2020-11-14 09:32 | REP ---
INDICATION: LOW BACK PAIN. COMPARISON: None. TECHNIQUE: AP, lateral, coned-down views of the lumbosacral spine FINDINGS: Alignment and lordosis maintained. No acute fracture/compression injury or subluxation. Relatively mild age-related changes include facet hypertrophy and minimal endplate sclerosis. Disc spaces are relatively maintained. IMPRESSION: Essentially age-appropriate lumbosacral spine radiograph series. If the patient remains symptomatic consider MRI for further investigation. <Electronically signed by Eugenio Peraza > 11/14/20 0928
== END ==
LOC: M SOG 08:17
PROVIDERS: ATTEND Orthopaedic Surgery Adult Reconstructive Orthopaedic Surgery
DX: M25.552 Pain in left hip (principal); M54.5 Low back pain

== ENCOUNTER → 2020-12-07 | Outpatient (CLI) | payer BC ==
--- NOTE | 2020-12-07 10:16 | REP ---
INDICATION: LBP. COMPARISON: Comparison radiographs are from November 14, 2020.. TECHNIQUE: Sagittal and axial T1 and T2-weighted scans are acquired in the usual fashion with and without fat saturation. Sequences include spin echo, turbo spin-echo, and STIR imaging sequences. FINDINGS: Lumbar vertebral body heights are preserved alignment is normal. Cortical and medullary bone signal intensity are normal. No evidence of bony destructive lesion. The tip of the conus medullaris is normal in position and appearance at T12-L1. No extra vertebral abnormality is appreciated. Axial and sagittal images taken at L1-2 demonstrate mild degenerative disc space narrowing and desiccation. There is a minimal central disc bulging indenting the ventral margin of the thecal sac. No spinal stenosis or foraminal narrowing is seen. At L2-3, there is no evidence of disc protrusion, spinal stenosis, or foraminal narrowing. Facets are unremarkable. At L3-4, there is minimal disc space narrowing and mild diffuse disc bulging. No spinal stenosis or foraminal encroachment is seen. There is minimal ligamentum flavum hypertrophy. At L4-5, there is a mild to moderate facet hypertrophy and ligamentum flavum hypertrophy. A small quantity of facet joint fluid is present bilaterally. There is diffuse disc bulging of the posterior disc margin. No neural foraminal narrowing is seen. Borderline canal size is present. At L5-S1, there is facet hypertrophy bilaterally. No disc protrusion, neural foraminal encroachment, or spinal stenosis seen. There is no evidence of spondylolysis or spondylolisthesis. IMPRESSION: Osteoarthritic facet hypertrophy most pronounced at L4-5 bilaterally. Mild disc bulging L3-4 and L4-5 as well as at L1-2. Borderline canal size at L4-5. Otherwise negative <Electronically signed by James Vang > 12/07/20 [id number]
== END ==
LOC: M RAD 08:21
PROVIDERS: ATTEND Orthopaedic Surgery Adult Reconstructive Orthopaedic Surgery
DX: M54.5 Low back pain (principal)

== ENCOUNTER → 2021-06-12 | Outpatient (CLI) | payer OTHER ==
[2021-06-12 17:49] LABS: BASO # 0.1 10^3/uL (0.0-0.2); BASO % 0.5 % (0.0-1.0); EOS % 0.1 % (0.0-3.0); HEMATOCRIT 36.5 % (36.0-47.0); HEMOGLOBIN 11.7 g/dl (12.0-15.5); LYMPH # 1.8 10^3/uL (1.5-5.0); LYMPH % 14.8 % (24.0-44.0); MEAN CORPUSCULAR HEMOGLOBIN 29.3 pg (27.0-33.0); MEAN CORPUSCULAR HGB CONC 32.1 g/dl (32.0-36.5); MEAN CORPUSCULAR VOLUME 91.3 fl (80.0-96.0); MONO # 0.5 10^3/uL (0.0-0.8); MONO % 3.8 % (2.0-8.0); NEUTROPHILS # 9.5 10^3/uL (1.5-8.5); NEUTROPHILS % 80.4 % (36.0-66.0); PLATELET COUNT, AUTOMATED 320 10^3/uL (150-450); WHITE BLOOD COUNT 11.8 10^3/uL (4.0-10.0)
[2021-06-12 18:07] LABS: ALBUMIN 4.1 GM/DL (3.2-5.2); ALT/SGPT 16 U/L (12-78); BILIRUBIN,TOTAL 0.2 MG/DL (0.2-1.0); BLOOD UREA NITROGEN 24 MG/DL (7-18); CALCIUM LEVEL 8.9 MG/DL (8.5-10.1); CARBON DIOXIDE LEVEL 25 MEQ/L (21-32); CHLORIDE LEVEL 111 MEQ/L (98-107); COMPLEMENT C3 120 MG/DL (90-180); COMPLEMENT C4 30 MG/DL (10-40); CREATININE FOR GFR 0.82 MG/DL (0.55-1.30); FREE T4 1.21 NG/DL (0.76-1.46); GLOMERULAR FILTRATION RATE > 60.0 (>51); GLUCOSE, FASTING 111 MG/DL (70-100); POTASSIUM SERUM 4.2 MEQ/L (3.5-5.1); SODIUM LEVEL 142 MEQ/L (136-145); THYROID STIMULATING HORMONE 0.128 uIU/ML (0.358-3.740)
[2021-06-12 19:28] LABS: ERYTHROCYTE SEDIMENTATION RATE 8 mm/hr (0-30)
[2021-06-15 14:11] LABS: ANTI DS-DNA AB Negative (Negative); ANTI SCLERODERMA ANTIBODIES <0.2 AI (0.0-0.9); ANTINUCLEAR ANTIBODIES DIRECT Negative (Negative); SJOGREN'S ANTI SS-A <0.2 AI (0.0-0.9); SJOGREN'S ANTI SS-B <0.2 AI (0.0-0.9)
== END ==
LOC: M PLALAB 14:41
PROVIDERS: ATTEND Internal Medicine Rheumatology
DX: M32.9 Systemic lupus erythematosus, unspecified (principal)

== ENCOUNTER → 2021-12-14 | Outpatient (CLI) | payer OTHER | LOC: M WHC 11:37 | PROVIDERS: ATTEND Obstetrics & Gynecology | DX: Z12.31 Encounter for screening mammogram for malignant neoplasm of breast (principal) ==

== ENCOUNTER → 2021-12-14 | Outpatient (REF) | payer OTHER | LOC: M PLALAB 13:34 | PROVIDERS: ATTEND Nurse Practitioner Family | DX: Z12.4 Encounter for screening for malignant neoplasm of cervix (principal); N89.8 Other specified noninflammatory disorders of vagina ==

== ENCOUNTER → 2022-01-05 | Outpatient (CLI) | payer OTHER | LOC: M WHC 08:29 | PROVIDERS: ATTEND Nurse Practitioner Family | DX: N60.01 Solitary cyst of right breast (principal); N60.02 Solitary cyst of left breast ==

== ENCOUNTER → 2022-03-02 | Outpatient (CLI) | payer OTHER ==
[~2022-03-02] MED LIST changes: +PROHANCE 279.3MG/ML 15ML VIAL As Ordered ONE
== END ==
LOC: M RAD 14:39
PROVIDERS: ATTEND Psychiatry & Neurology Neurology
DX: G43.711 Chronic migraine without aura, intractable, with status migrainosus (principal)
CPT/HCPCS: 70553; A9576

== ENCOUNTER → 2022-10-21 | Outpatient (CLI) | payer BC ==
[~2022-10-21] MED LIST changes: -PROHANCE 279.3MG/ML 15ML VIAL As Ordered ONE
[2022-10-21 16:18] LABS: FOLLICLE STIMULATING HORMONE 88.8 mIU/ML
[2022-10-21 16:19] LABS: FREE T3 3.8 PG/ML (2.3-4.2)
[2022-10-21 16:20] LABS: THYROID STIMULATING HORMONE 0.029 uIU/ML (0.55-4.78)
[2022-10-21 16:21] LABS: ESTRADIOL < 19.0 PG/ML; LUTEINIZING HORMONE 41.3 mIU/ML
[2022-10-21 16:22] LABS: FREE T4 1.63 NG/DL (0.89-1.76)
== END ==
LOC: M PLALAB 14:02
PROVIDERS: ATTEND Obstetrics & Gynecology
DX: N95.1 Menopausal and female climacteric states (principal)

== ENCOUNTER → 2023-01-18 | Outpatient (CLI) | payer BC ==
[~2023-01-18] MED LIST changes: +CELE0.09 PO; -CELE1CAP9 PO; +DICL100G10 TOP; -DICL1GEL3 TOP; -HYDR200T3 PO; +HYDR200T46 PO
== END ==
LOC: M WHC 13:23
PROVIDERS: ATTEND Obstetrics & Gynecology
DX: Z12.31 Encounter for screening mammogram for malignant neoplasm of breast (principal); N63.13 Unspecified lump in the right breast, lower outer quadrant

== ENCOUNTER → 2023-01-19 | Outpatient (CLI) | payer BC ==
[2023-01-19 19:09] LABS: BASO # 0.1 10^3/uL (0.0-0.2); BASO % 0.8 % (0.0-1.0); EOS % 0.3 % (0.0-3.0); HEMATOCRIT 34.5 % (36.0-47.0); LYMPH # 1.9 10^3/uL (1.5-5.0); LYMPH % 16.5 % (24.0-44.0); MEAN CORPUSCULAR HEMOGLOBIN 28.9 pg (27.0-33.0); MEAN CORPUSCULAR HGB CONC 31.9 g/dl (32.0-36.5); MEAN CORPUSCULAR VOLUME 90.6 fl (80.0-96.0); MONO # 0.5 10^3/uL (0.0-0.8); MONO % 4.3 % (2.0-8.0); NEUTROPHILS % 77.8 % (36.0-66.0); PLATELET COUNT, AUTOMATED 315 10^3/uL (150-450); RED BLOOD COUNT 3.81 10^6/uL (4.00-5.40); WHITE BLOOD COUNT 11.5 10^3/uL (4.0-10.0)
[2023-01-19 19:47] LABS: FREE T4 1.19 NG/DL (0.89-1.76); THYROID STIMULATING HORMONE 0.662 uIU/ML (0.55-4.78)
== END ==
LOC: M PLALAB 14:35
PROVIDERS: ATTEND Internal Medicine Rheumatology
DX: M32.9 Systemic lupus erythematosus, unspecified (principal); R53.82 Chronic fatigue, unspecified; R76.8 Other specified abnormal immunological findings in serum; Z79.899 Other long term (current) drug therapy

== ENCOUNTER → 2023-01-26 | Outpatient (CLI) | payer BC | LOC: M WHC 13:30 | PROVIDERS: ATTEND Obstetrics & Gynecology | DX: R92.8 Other abnormal and inconclusive findings on diagnostic imaging of breast (principal) ==

== ENCOUNTER → 2023-01-28 | Outpatient (CLI) | payer BC ==
[2023-01-28 13:33] LABS: BASO # 0.1 10^3/uL (0.0-0.2); BASO % 0.7 % (0.0-1.0); EOS % 0.2 % (0.0-3.0); HEMATOCRIT 33.6 % (36.0-47.0); HEMOGLOBIN 10.9 g/dl (12.0-15.5); LYMPH # 1.6 10^3/uL (1.5-5.0); LYMPH % 17.8 % (24.0-44.0); MEAN CORPUSCULAR HEMOGLOBIN 29.1 pg (27.0-33.0); MEAN CORPUSCULAR HGB CONC 32.4 g/dl (32.0-36.5); MEAN CORPUSCULAR VOLUME 89.8 fl (80.0-96.0); MONO # 0.5 10^3/uL (0.0-0.8); MONO % 5.1 % (2.0-8.0); NEUTROPHILS # 6.9 10^3/uL (1.5-8.5); NEUTROPHILS % 75.9 % (36.0-66.0); PLATELET COUNT, AUTOMATED 251 10^3/uL (150-450); RED BLOOD COUNT 3.74 10^6/uL (4.00-5.40); WHITE BLOOD COUNT 9.2 10^3/uL (4.0-10.0)
[2023-01-28 14:02] LABS: FERRITIN 54.8 NG/ML (7.3-270.7)
[2023-01-28 14:03] LABS: PERCENT SATURATION 20.5 % (13.2-45.0)
== END ==
LOC: M PLALAB 11:28
PROVIDERS: ATTEND Internal Medicine Rheumatology
DX: R53.82 Chronic fatigue, unspecified (principal); Z79.899 Other long term (current) drug therapy

== ENCOUNTER → 2023-07-07 | Outpatient (CLI) | payer BC ==
[~2023-07-07] MED LIST changes: +BENL200I SQ; +COMB1DIS TOP; +ERGO500029 PO; +FAMO40TA3 PO; +FERR325T3 PO; +FREM225A SQ; +LEVO112T2 PO; +NARA2.5T PO; +PREM0.3T2 PO; +TOPI1CAP2 PO; +TRAZ-252 PO; +UBRO100T PO
[2023-07-07 17:54] LABS: BASO # 0.1 10^3/uL (0.0-0.2); BASO % 0.7 % (0.0-1.0); EOS # 0.1 10^3/uL (0.0-0.5); EOS % 0.7 % (0.0-3.0); HEMATOCRIT 35.4 % (36.0-47.0); HEMOGLOBIN 11.7 g/dl (12.0-15.5); LYMPH % 19.6 % (24.0-44.0); MEAN CORPUSCULAR HEMOGLOBIN 29.8 pg (27.0-33.0); MEAN CORPUSCULAR HGB CONC 33.1 g/dl (32.0-36.5); MEAN CORPUSCULAR VOLUME 90.3 fl (80.0-96.0); MONO # 0.6 10^3/uL (0.0-0.8); MONO % 5.9 % (2.0-8.0); NEUTROPHILS # 7.3 10^3/uL (1.5-8.5); NEUTROPHILS % 72.8 % (36.0-66.0); PLATELET COUNT, AUTOMATED 262 10^3/uL (150-450); RED BLOOD COUNT 3.92 10^6/uL (4.00-5.40)
[2023-07-07 18:19] LABS: THYROID STIMULATING HORMONE 0.525 uIU/ML (0.55-4.78)
[2023-07-07 18:21] LABS: ALKALINE PHOSPHATASE 55 U/L (46-116); ALT/SGPT 14 U/L (7.0-40); AST/SGOT 8 U/L (<34); BILIRUBIN,TOTAL 0.3 MG/DL (0.3-1.2); BLOOD UREA NITROGEN 22 MG/DL (9-23); CALCIUM LEVEL 9.3 MG/DL (8.5-10.1); CARBON DIOXIDE LEVEL 25 MMOL/L (20-31); CHLORIDE LEVEL 109 MMOL/L (98-107); CREATININE FOR GFR 0.84 MG/DL (0.55-1.30); FREE T4 1.22 NG/DL (0.89-1.76); GLOMERULAR FILTRATION RATE > 60.0 (>51); GLUCOSE, FASTING 116 MG/DL (60-100); POTASSIUM SERUM 3.7 MMOL/L (3.5-5.1); SODIUM LEVEL 140 MMOL/L (136-145); TOTAL PROTEIN 6.4 G/DL (5.7-8.2)
== END ==
LOC: M PLALAB 16:50
PROVIDERS: ATTEND Internal Medicine
DX: E03.9 Hypothyroidism, unspecified (principal); M32.9 Systemic lupus erythematosus, unspecified

== ENCOUNTER 2023-07-22 12:16 | Outpatient (CLI) | payer BC ==
[~2023-07-22] VITALS: Ht 160 cm; Wt 68.0 kg
[2023-07-22] MEDS: FERRIC CARBOXYMALTOSE INJ 750 MG in NS 250 ML (>50kg) IV ONE (12:34)
[2023-07-22 12:48] VITALS: BP 127/60; O2SAT 99
[2023-07-22 14:10] VITALS: BP 120/64; O2SAT 99
== END 2023-07-22 14:10 | disposition home or self-care (01) ==
LOC: M INFU 12:16
PROVIDERS: ATTEND Internal Medicine Medical Oncology
DX: D50.9 Iron deficiency anemia, unspecified (principal)
CPT/HCPCS: 96365; 96366; J1439

== ENCOUNTER 2023-07-29 07:30 | Outpatient (CLI) | payer BC ==
[~2023-07-29] VITALS: Ht 160 cm; Wt 68.0 kg
[2023-07-29 07:30] VITALS: BP 109/59; O2SAT 100
[2023-07-29] MEDS: FERRIC CARBOXYMALTOSE INJ 750 MG in NS 250 ML (>50kg) IV ONE (07:36)
[2023-07-29 08:55] VITALS: BP 116/60; O2SAT 100
== END 2023-07-29 09:00 ==
LOC: M INFU 07:30
PROVIDERS: ATTEND Internal Medicine Medical Oncology
DX: D50.9 Iron deficiency anemia, unspecified (principal)
CPT/HCPCS: 96365; J1439

== ENCOUNTER 2023-08-08 07:06 | Day surgery (SDC) | payer BC ==
[~2023-08-08] VITALS: Ht 157.5 cm; Wt 68.9 kg
[~2023-08-08 07:06] MED LIST changes: +fentaNYL 100 MCG/2 ML INJECTION As Ordered ONE
[2023-08-08] MEDS: NS 1,000 ML IV ONE (07:23)
[2023-08-08 08:06] VITALS: TEMP 97.4
[2023-08-08 08:25] VITALS: BP 103/57; O2SAT 100
[2023-08-08] MEDS ORDERED: propofoL 200 MG/20 ML VIAL As Ordered ONE (14:48)
[2023-08-08] MEDS ORDERED: GLYCOPYRROLATE INJ 0.2 MG/ML 2 ML VIAL As Ordered ONE (14:48)
[2023-08-08] MEDS ORDERED: ePHEDrine SULFATE 25 MG/5 ML(5MG/ML) SYRINGE As Ordered ONE (14:48)
[2023-08-08] MEDS ORDERED: LIDOCAINE 2% INJ 100 MG/5 ML SYRINGE As Ordered ONE (14:49)
== END 2023-08-08 08:41 | disposition home or self-care (01) ==
LOC: M OPP 07:06
PROVIDERS: ATTEND Internal Medicine Gastroenterology
DX: K64.0 First degree hemorrhoids (principal); D50.9 Iron deficiency anemia, unspecified; K31.89 Other diseases of stomach and duodenum; Z79.1 Long term (current) use of non-steroidal anti-inflammatories (NSAID); Z79.890 Hormone replacement therapy; Z79.899 Other long term (current) drug therapy
CPT/HCPCS: 43239; 45378; 88305; J3010

== ENCOUNTER → 2024-01-11 | Outpatient (REF) | payer SELFPAY ==
[~2024-01-11] MED LIST changes: -fentaNYL 100 MCG/2 ML INJECTION As Ordered ONE
[2024-01-12 02:50] LABS: APPEARANCE, URINE CLEAR (CLEAR); BACTERIA, URINE AUTO 1+ (NEGATIVE); BILIRUBIN, URINE AUTO NEGATIVE (NEGATIVE); BLOOD, URINE BLOOD NEGATIVE (NEGATIVE); COLOR, URINE YELLOW (YELLOW); GLUCOSE, URINE (UA) AUTO NEGATIVE (NEGATIVE); KETONE, URINE AUTO NEGATIVE (NEGATIVE); LEUKOCYTE ESTERASE, URINE AUTO NEGATIVE (NEGATIVE); NITRITE, URINE AUTO NEGATIVE (NEGATIVE); PROTEIN, URINE AUTO NEGATIVE (NEGATIVE); RBC, URINE AUTO 1 /HPF (0-3); SPECIFIC GRAVITY URINE AUTO 1.019 (1.002-1.035); SQUAMOUS EPITHELIAL CELL UR AU 2 /HPF (0-6); UROBILINOGEN, URINE AUTO 0.2 mg/dL (0.0-2.0); WBC, URINE AUTO 0 /HPF (0-3)
== END ==
LOC: M LAB REF 16:50
PROVIDERS: ATTEND Physician Assistant
DX: N39.0 Urinary tract infection, site not specified (principal)

== ENCOUNTER → 2024-03-01 | Outpatient (CLI) | payer BC | LOC: M WHC 08:40 | PROVIDERS: ATTEND Obstetrics & Gynecology | DX: R92.8 Other abnormal and inconclusive findings on diagnostic imaging of breast (principal); R92.333 Mammographic heterogeneous density, bilateral breasts ==

== ENCOUNTER → 2025-01-22 | Outpatient (CLI) | payer BC ==
[2025-01-22 18:34] LABS: BASO # 0.0 10^3/uL (0.0-0.2); BASO % 0.5 % (0.0-1.0); EOS # 0.0 10^3/uL (0.0-0.5); EOS % 0.0 % (0.0-3.0); LYMPH # 1.2 10^3/uL (1.5-5.0); LYMPH % 14.8 % (24.0-44.0); MONO # 0.4 10^3/uL (0.0-0.8); MONO % 5.1 % (2.0-8.0); NEUTROPHILS # 6.6 10^3/uL (1.5-8.5); NEUTROPHILS % 79.4 % (36.0-66.0); PLATELET COUNT, AUTOMATED 254 10^3/uL (150-450)
[2025-01-22 18:41] LABS: ERYTHROCYTE SEDIMENTATION RATE 2 mm/hr (0-30)
[2025-01-22 19:00] LABS: C REACTIVE PROTEIN QUANTITATIV < 0.50 MG/DL (<1.0)
[2025-01-22 19:03] LABS: ALT/SGPT 14 U/L (7.0-40); AST/SGOT 14 U/L (<34); CALCIUM LEVEL 9.5 MG/DL (8.5-10.1); CARBON DIOXIDE LEVEL 24 MMOL/L (20-31); CHLORIDE LEVEL 108 MMOL/L (98-107); CREATININE FOR GFR 0.84 MG/DL (0.55-1.30); GLOMERULAR FILTRATION RATE 82.0 (>51); POTASSIUM SERUM 4.4 MMOL/L (3.5-5.1); SODIUM LEVEL 143 MMOL/L (136-145)
== END ==
LOC: M PLALAB 17:04
PROVIDERS: ATTEND Internal Medicine Rheumatology
DX: M32.9 Systemic lupus erythematosus, unspecified (principal)

== ENCOUNTER → 2025-01-25 | Outpatient (REF) | payer BC | LOC: M LAB REF 13:18 | PROVIDERS: ATTEND Internal Medicine Rheumatology | DX: Z53.9 Procedure and treatment not carried out, unspecified reason (principal) ==